=== PATIENT | male | born 1985 | race Caucasian/White ===

== ENCOUNTER → 2016-12-02 | Outpatient (CLI) | payer BC ==
[~2016-12-02] MED LIST: ADVAIR IH; ALBUTEROL S0.4 MG/ML; GENTAMICIN EYE D5 ML OP; MOTRIN 800800 MG/TAB PO; NORCO 325 MG-51 TAB PO; PERCOCET 325 MG1 TA3; PROAIR HFA0.09 MG/AC IH; SINGULAIR; XARELTO15 MG PO; XARELTO20 MG PO
== END ==
LOC: COL.VAS 13:49
DX: M79.605 Pain in left leg (principal); M79.89 Other specified soft tissue disorders

== ENCOUNTER → 2017-01-10 | Outpatient (CLI) | payer BC | LOC: COL.VAS 13:45 | DX: I87.2 Venous insufficiency (chronic) (peripheral) (principal); M79.89 Other specified soft tissue disorders; M71.22 Synovial cyst of popliteal space [Baker], left knee; Z86.718 Personal history of other venous thrombosis and embolism ==

== ENCOUNTER 2020-11-11 09:52 | Emergency (ER) | payer BC ==
[~2020-11-11] VITALS: Ht 198.1 cm; Wt 181.8 kg
[2020-11-11 10:05] VITALS: BP 158/94; TEMP 98.4
[2020-11-11] MEDS ORDERED: RT ADVAIR 528 DISKUS IH (10:29)
[2020-11-11] MEDS ORDERED: NORCO 325 MG-51 TAB PO (11:14)
[2020-11-11 11:34] VITALS: PULSE 78
== END 2020-11-11 11:34 | disposition home or self-care (01) ==
LOC: COL.ER 09:52
DX: M79.89 Other specified soft tissue disorders (principal); Z86.718 Personal history of other venous thrombosis and embolism; Z79.01 Long term (current) use of anticoagulants; Z79.51 Long term (current) use of inhaled steroids